=== PATIENT | female | born 1950 | race Caucasian/White ===

== ENCOUNTER 2017-06-21 14:19 | Emergency (ER) | payer OTHER ==
[~2017-06-21] VITALS: Ht 162.6 cm; Wt 70.6 kg
[2017-06-21 14:23] VITALS: TEMP 36.9; Ht 162.6 cm; Wt 70.6 kg
[2017-06-21] MEDS ORDERED: OPTIRAY 320 IV PRN (15:15)
[2017-06-21] MEDS ORDERED: MULT-506 PO (15:17)
[2017-06-21] MEDS ORDERED: CHOL100010 PO (15:17)
[2017-06-21 15:19] VITALS: O2SAT 94
[2017-06-21 15:38] LABS: BASO % 0.2 %; BASO ABS # 0.02 K/uL (0-0.2); EOS % 0.3 %; EOS ABS # 0.04 K/uL (0-0.5); HEMATOCRIT 44.5 % (37-47); HEMOGLOBIN 15.2 g/dL (12.0-16.0); IG# 0.03 K/uL (0.00-0.02); LYMPH % 17.9 %; LYMPH ABS # 2.08 K/uL (1.2-3.4); MEAN CELL VOLUME 86.9 fL (80-100); MEAN CORPUSCULAR HEMOGLOBIN 29.7 pg (25-34); MEAN CORPUSCULAR HGB CONC 34.2 g/dl (32-36); MEAN PLATELET VOLUME 8.2 fL (7.4-10.4); MONO % 7.9 %; MONO ABS # 0.91 K/uL (0.11-0.59); NEUT % 73.4 %; NEUT ABS # 8.51 K/uL (1.4-6.5); PLATELET COUNT 291 K/uL (130-400); RED CELL DISTRIBUTION WIDTH CV 13.5 % (11.5-14.5); WHITE BLOOD COUNT 11.59 K/uL (4.8-10.8)
[2017-06-21 15:47] LABS: PTT PATIENT 26.1 SECONDS (21.0-31.0)
[2017-06-21 15:49] LABS: CALCIUM 9.2 mg/dl (8.5-10.1); CREATININE 0.87 mg/dl (0.60-1.20); POTASSIUM 3.4 mmol/L (3.5-5.1)
[2017-06-21 15:52] LABS: TOTAL PROTEIN 7.4 gm/dl (6.4-8.2)
--- NOTE | 2017-06-21 16:15 | EMERGENCY ROOM VISIT NOTE ---
History First contact with patient: 14:53 Chief Complaint: RECTAL BLEEDING Stated Complaint: BLEEDING Nursing Triage Summary: Patient up all night with vomiting and diarrhea. This morning patient noticed that when she passed gas there was blood in her stool. History of Present Illness The patient is a 67 year old female who presents to the Emergency Room via private vehicle accompanied by with complaints of "rectal bleeding". The patient states that she went out to eat last night and then became ill with vomiting and diarrhea around 10:30 PM. She states that she woke up various times throughout the night with diarrhea and vomiting. It was this morning when she had flatulence that she noticed bright red blood per rectum. This was early this morning. She states that since that time she has had persistence of bright red blood with some mucus now with flatulence and defecation. She notes no significant intra-abdominal history however did have a colonoscopy [address] Holder. At that time she states that there was one 4 mm polyp 15 cm proximal to the anus. This was resected. This is per her notes which she brings with her today from the colonoscopy. She notes minimal abdominal pain. No recent antibiotics. She takes no medications. She denies any fever, chills, chest pain or shortness of breath. No history of hemorrhoids. Review of Systems A complete 10-point Review of Systems was discussed with the patient, with pertinent positives and negatives listed in the History of Present Illness. All remaining Review of Systems questions can be considered negative unless otherwise specified. Past Medical/Surgical History Polyp found on colonoscopy. Family History Patient notes a colon History in the family. Social History Smoking Status: Current Every Day Smoker Patient lives locally. Current/Historical Medications Scheduled Cholecalciferol (Vitamin D), 1,000 UNITS PO DAILY Multivitamin (Multivitamin), 1 TAB PO DAILY Physical Exam Vital Signs Date Time Temp Pulse Resp B/P (MAP) Pulse Ox O2 Delivery O2 Flow Rate FiO2 06/21/17 20:04 95 155/93 93 06/21/17 17:47 80 18 142/66 95 Room Air 06/21/17 16:44 85 148/80 95 Room Air 06/21/17 16:29 79 06/21/17 15:19 94 Room Air 06/21/17 14:23 36.9 86 16 155/77 95 Room Air Physical Exam VITAL SIGNS - Vital signs and nursing notes were reviewed. Stable. Afebrile. GENERAL -67-year-old female appearing her stated age who is in no acute distress. Communicates well with provider and answers questions appropriately. SKIN - Without rashes. No meningeal petechial rash. HEAD - NC/AT. EYES - PERRL with EOMI bilaterally. Sclera anicteric. No hyphema. EARS - No deformities of external structures noted on gross examination bilaterally. External auditory canals without discharge or otorrhea. Tympanic membranes pearly garcia without retraction or bulging. No fluid or purulent material visualized behind the TM. Handle of malleus, umbo, cone of light, pars tensa/flaccid all easily visualized. NOSE - Midline and without cyanosis. No epistaxis or purulent drainage noted. MOUTH/OROPHARYNX - Without perioral cyanosis. Buccal mucosa pink and moist and without leukoplakia. Tongue midline with equal elevation of palate bilaterally. No tonsillar hypertrophy, erythema, or exudates noted. NECK - Neck with FROM. Supple to palpation. no lymphadenopathy noted. No nuchal rigidity. LUNGS - Chest wall symmetric without accessory muscle use, intercostals retractions, or central cyanosis. Normal vesicular breath sounds CTA B/L. No wheezes, rales, or rhonchi appreciated. CARDIAC - RRR with S1/S2. No murmur, rubs, or gallops appreciated. ABDOMEN - Abdominal contour normal without pulsations or visible masses. BS normoactive all four quadrants. No minimal generalized abdominal tenderness noted. Palpable masses, hepatosplenomegaly, or ascites noted. EXTREMITIES - No clubbing or peripheral cyanosis. No pretibial edema present. + 5/5 strength noted in UE/LE bilaterally. NEUROLOGIC - Cranial nerves II through XII grossly intact. Sensory intact to light touch throughout. PSYCH - A&O, and cooperates fully with examiner. Pt is very pleasant and interacts well with examiner. RECTAL: With a female utility driver in the room a rectal exam was performed. Unremarkable to inspection. Digital rectal exam unremarkable. Stool Hemoccult testing positive. Medical Decision & Procedures ER Provider Diagnostic Interpretation: CT ABD/PELVIS IV AND ORAL CONT CLINICAL HISTORY: Abdominal pain and rectal bleeding COMPARISON STUDY: None. TECHNIQUE: Following the IV administration of 119 mL of Optiray-320, CT scan of the abdomen and pelvis was performed from the lung bases to the proximal femurs. Images are reviewed in the axial, sagittal, and coronal planes. IV contrast was administered without complication. A dose lowering technique was utilized adhering to the principles of ALARA. CT DOSE: 401.60 mGy.cm FINDINGS: Lower chest: There are mild basilar atelectatic changes. Liver: The contrast-enhanced liver is normal in size, contour, and attenuation. There is no intrahepatic biliary ductal dilatation. The hepatic veins and portal veins are patent. Gallbladder: Unremarkable. Spleen: Normal in size and attenuation. Pancreas: Unremarkable. Adrenal glands: Unremarkable. Kidneys: There is a 12 mm lower pole right renal hypodensity consistent with a cyst. Additional tiny renal hypodensities likely represent additional cysts. Bowel: There are no transition zones to indicate bowel obstruction. There is bowel wall thickening involving the entire descending colon with minimal infiltration of the pericolonic fat. The findings are consistent with a colitis (infectious versus inflammatory versus ischemic) Peritoneum: There is no intraperitoneal free air or abdominal ascites. There is a small fat-containing right inguinal hernia Vasculature: The abdominal aorta is normal in course and caliber. Adenopathy: None. Pelvic viscera: The bladder, and pelvic viscera are unremarkable. Skeletal structures: No destructive osseous lesions are seen. IMPRESSION: 1. No evidence of bowel obstruction. No evidence of free air 2. Bowel wall thickening involving the descending colon indicative of a colitis Electronically signed by: Thad Benson M.D. 06/21/2017 6:13 PM Dictated Date/Time: 06/21/2017 6:08 PM Laboratory Results 06/21/17 15:15 Red Blood Count 5.12, Mean Corpuscular Volume 86.9, Mean Corpuscular Hemoglobin 29.7, Mean Corpuscular Hemoglobin Concent 34.2, Mean Platelet Volume 8.2, Neutrophils (%) (Auto) 73.4, Lymphocytes (%) (Auto) 17.9, Monocytes (%) (Auto) 7.9, Eosinophils (%) (Auto) 0.3, Basophils (%) (Auto) 0.2, Neutrophils # (Auto) 8.51, Lymphocytes # (Auto) 2.08, Monocytes # (Auto) 0.91, Eosinophils # (Auto) 0.04, Basophils # (Auto) 0.02 06/21/17 15:15 Test 06/21/17 15:15 06/21/17 17:45 White Blood Count 11.59 K/uL (4.8-10.8) Red Blood Count 5.12 M/uL (4.2-5.4) Hemoglobin 15.2 g/dL (12.0-16.0) Hematocrit 44.5 % (37-47) Mean Corpuscular Volume 86.9 fL (80-100) Mean Corpuscular Hemoglobin 29.7 pg (25-34) Mean Corpuscular Hemoglobin Concent 34.2 g/dl (32-36) Platelet Count 291 K/uL (130-400) Mean Platelet Volume 8.2 fL (7.4-10.4) Neutrophils (%) (Auto) 73.4 % Lymphocytes (%) (Auto) 17.9 % Monocytes (%) (Auto) 7.9 % Eosinophils (%) (Auto) 0.3 % Basophils (%) (Auto) 0.2 % Neutrophils # (Auto) 8.51 K/uL (1.4-6.5) Lymphocytes # (Auto) 2.08 K/uL (1.2-3.4) Monocytes # (Auto) 0.91 K/uL (0.11-0.59) Eosinophils # (Auto) 0.04 K/uL (0-0.5) Basophils # (Auto) 0.02 K/uL (0-0.2) RDW Standard Deviation 43.0 fL (36.4-46.3) RDW Coefficient of Variation 13.5 % (11.5-14.5) Immature Granulocyte % (Auto) 0.3 % Immature Granulocyte # (Auto) 0.03 K/uL (0.00-0.02) Erythrocyte Sedimentation Rate 15 mm/hr (0-21) Prothrombin Time 10.3 SECONDS (9.0-12.0) Prothromb Time International Ratio 1.0 (0.9-1.1) Activated Partial Thromboplast Time 26.1 SECONDS (21.0-31.0) Partial Thromboplastin Ratio 1.0 Urine Color YELLOW Urine Appearance CLEAR (CLEAR) Urine pH 6.5 (4.5-7.5) Urine Specific [place] 1.007 (1.000-1.030) Urine Protein NEG (NEG) Urine Glucose (UA) NEG (NEG) Urine Ketones NEG (NEG) Urine Occult Blood TRACE (NEG) Urine Nitrite NEG (NEG) Urine Bilirubin NEG (NEG) Urine Urobilinogen NEG (NEG) Urine Leukocyte Esterase TRACE (NEG) Urine WBC (Auto) 1-5 /hpf (0-5) Urine RBC (Auto) 0-4 /hpf (0-4) Urine Hyaline Casts (Auto) 0 /lpf (0-5) Urine Epithelial Cells (Auto) 20-30 /lpf (0-5) Urine Bacteria (Auto) NEG (NEG) Anion Gap 8.0 mmol/L (3-11) Est Creatinine Clear Calc Drug Dose 58.8 ml/min Estimated GFR () 78.8 Estimated GFR (Non- 68.0 BUN/Creatinine Ratio 15.1 (10-20) Calcium Level 9.2 mg/dl (8.5-10.1) Magnesium Level 2.1 mg/dl (1.8-2.4) Total Bilirubin 0.5 mg/dl (0.2-1) Aspartate Amino Transf (AST/SGOT) 17 U/L (15-37) Alanine Aminotransferase (ALT/SGPT) 21 U/L (12-78) Alkaline Phosphatase 75 U/L (45-117) C-Reactive Protein 0.40 mg/dl (0-0.29) Total Protein 7.4 gm/dl (6.4-8.2) Albumin 4.0 gm/dl (3.4-5.0) Globulin 3.4 gm/dl (2.5-4.0) Albumin/Globulin Ratio 1.2 (0.9-2) Date/Time Source Procedure Growth Status 06/21/17 17:45 Stool C.difficile Toxin B Gene (PCR) - Final No C. difficile toxin B gene detected Complete Medical Decision Patient was seen and evaluated as above interim B2. She presents to us today with bright red blood per rectum and minimal abdominal cramping. She is nontoxic on exam. Review was performed of nursing notes and vital signs. After obtaining a thorough history and physical examination the above work up was performed. CBC reveals slight leukocytosis at 11.59. No significant anemia. No significant metabolic abnormality. CT scan of the abdomen pelvis was obtained. Diffuse colitis noted. Case was discussed with the attending physician is subsequently the on-call GI specialist, Dr. Gerard. We discussed the case. He was recommended to have the patient discharged home with rest, and follow-up with PCP. I do not suspect this to be from ischemia. This is likely from food that she ate. Stool cultures pending. However given that this may persist she is to follow-up or return with worsening. She was hydrated here. She is to return with worsening. The patient was educated upon management, had questions answered prior to discharge, and was discharged home in good condition. Patient notes she takes no medications. Blood pressure was reviewed and was found to be slightly elevated here. Likely secondary to situation. In the evaluation and treatment of this patient the following differential diagnoses were entertained: Viral gastroenteritis, food poisoning, ischemic colitis, ulcerative colitis, Crohn's disease, infectious colitis, among others. Impression Primary Impression: Rectal bleeding Additional Impressions: Colitis Hypokalemia Departure Information Dispostion Home / Self-Care Condition GOOD Referrals Regina Kumar M.D. (PCP) Jonathan Holder MD Patient Instructions [facility] Additional Instructions You have been treated in the Emergency Department your Abdominal Pain and rectal bleeding which was found to be colitis. Laboratory results and imaging studies have ruled out any emergent causes for your abdominal pain which would warrant admission or surgery. For pain control, you can use the following [id number] medicines (if >12 yo): - Regular strength (325mg/tab) Tylenol (acetaminophen) 2 tabs every 4-6 hours as needed. Do not exceed 12 tablets in a 24 hour period. Avoid taking more than 3 grams (3000 mg) of Tylenol per day. This includes any other sources of acetaminophen you may take on a regular basis. Please consume a bland diet for the next few days. Drink plenty of water and stay well hydrated. As with any trip to the Emergency Department, you should follow-up with your Primary Care Provider from today's visit. Please call Dr. Kumar first thing tomorrow morning to schedule follow-up. Please return with worsening. Return to the emergency department if your symptoms persist despite treatment plan outlined above or if the following symptoms occur: increased fevers, chills , worsening nausea/vomiting, more blood in your stool or urine. Problem Qualifiers
--- NOTE | 2017-06-21 18:15 | DIAGNOSTIC IMAGING REPORT ---
CT ABD/PELVIS IV AND ORAL CONT CLINICAL HISTORY: Abdominal pain and rectal bleeding COMPARISON STUDY: None. TECHNIQUE: Following the IV administration of 119 mL of Optiray-320, CT scan of the abdomen and pelvis was performed from the lung bases to the proximal femurs. Images are reviewed in the axial, sagittal, and coronal planes. IV contrast was administered without complication. A dose lowering technique was utilized adhering to the principles of ALARA. CT DOSE: 401.60 mGy.cm FINDINGS: Lower chest: There are mild basilar atelectatic changes. Liver: The contrast-enhanced liver is normal in size, contour, and attenuation. There is no intrahepatic biliary ductal dilatation. The hepatic veins and portal veins are patent. Gallbladder: Unremarkable. Spleen: Normal in size and attenuation. Pancreas: Unremarkable. Adrenal glands: Unremarkable. Kidneys: There is a 12 mm lower pole right renal hypodensity consistent with a cyst. Additional tiny renal hypodensities likely represent additional cysts. Bowel: There are no transition zones to indicate bowel obstruction. There is bowel wall thickening involving the entire descending colon with minimal infiltration of the pericolonic fat. The findings are consistent with a colitis (infectious versus inflammatory versus ischemic) Peritoneum: There is no intraperitoneal free air or abdominal ascites. There is a small fat-containing right inguinal hernia Vasculature: The abdominal aorta is normal in course and caliber. Adenopathy: None. Pelvic viscera: The bladder, and pelvic viscera are unremarkable. Skeletal structures: No destructive osseous lesions are seen. IMPRESSION: 1. No evidence of bowel obstruction. No evidence of free air 2. Bowel wall thickening involving the descending colon indicative of a colitis Electronically signed by: Thad Benson M.D. 06/21/2017 6:13 PM Dictated Date/Time: 06/21/2017 6:08 PM
[2017-06-21 20:04] VITALS: BP 155/93; PULSE 95; O2SAT 93
--- NOTE | 2017-06-22 17:37 | EMERGENCY ROOM VISIT NOTE ---
ED Visit Note First contact with patient: 14:53 I reviewed the patient's past medical history, medications, and visit nursing notes. I discussed the case with the physician press operator assistant, examined the patient, and agree with the findings and plan as documented in the physician assistants note.
== END 2017-06-21 20:06 | disposition home or self-care (01) ==
LOC: C.EDB 14:22
DX: K52.9 Noninfective gastroenteritis and colitis, unspecified (principal); E87.6 Hypokalemia; F17.200 Nicotine dependence, unspecified, uncomplicated; Z86.010 Personal history of colon polyps